=== PATIENT | female | born 1980 | race African-American/Black ===

== ENCOUNTER 2019-04-22 20:00 | Emergency (ER) | payer MEDICAID, OTHER ==
[~2019-04-22] VITALS: Ht 185.4 cm; Wt 130.0 kg
[~2019-04-22 20:00] MED LIST: IBUP-1051 PO; NO HOME MEDS; TRAM50TA2 PO
[2019-04-22 21:02] VITALS: BP 157/107
== END 2019-04-22 21:07 | disposition home or self-care (01) ==
LOC: ER 20:00
DX: H61.21 Impacted cerumen, right ear (principal); Z98.890 Other specified postprocedural states; Z56.0 Unemployment, unspecified; Z79.899 Other long term (current) drug therapy
CPT/HCPCS: 99281